=== PATIENT | male | born 1995 | race African-American/Black ===

== ENCOUNTER 2023-11-14 16:26 | Emergency (ER) | payer SELFPAY ==
[~2023-11-14] VITALS: Ht 172.7 cm; Wt 63.0 kg
[2023-11-14 16:40] VITALS: O2SAT 99
[2023-11-14] MEDS ORDERED: KETOROLAC 60MG/2ML VIAL IM STA (16:57)
[2023-11-14] MEDS ORDERED: TETANUS, DIPHTHERIA, PERTUSSIS VAC/PF 0.5ML (>10YR OLD) IM ONE (17:00)
[2023-11-14] MEDS ORDERED: BACITRACIN ZINC OINT UDPKT TOP ONE (17:00)
[2023-11-14] MEDS ORDERED: LIDOCAINE HCL/PF 1% 10 MG/ML 5ML VIAL INFIL ONE (17:00)
[2023-11-14] MEDS ORDERED: IBUP-2029 PO (18:38)
[2023-11-14] MEDS ORDERED: CEPH500C2 MT (18:38)
[2023-11-14 19:11] VITALS: BP 125/89; PULSE 93; RESP 18; TEMP 98.5
== END 2023-11-14 19:14 | disposition home or self-care (01) ==
LOC: ER 16:26
DX: S71.112A Laceration without foreign body, left thigh, initial encounter (principal); X58.XXXA Exposure to other specified factors, initial encounter; Y93.89 Activity, other specified; Y92.89 Other specified places as the place of occurrence of the external cause; Y99.8 Other external cause status
CPT/HCPCS: 73552; 90715; 90471; 96372; 99284; J1885; J3490; Z7610 ×3